=== PATIENT | female | born 1960 | race Caucasian/White ===

== ENCOUNTER 2019-02-16 12:07 | Emergency (ER) | payer OTHER ==
[~2019-02-16] VITALS: Ht 149.9 cm; Wt 72.6 kg
[~2019-02-16 12:07] MED LIST: LISI-420 PO; NITR100C7 PO; TAMS0.4C96 PO
[2019-02-16 12:09] VITALS: BP 155/76
--- NOTE | 2019-02-16 12:19 | NUR ---
PATIENT AMBULATED TO BED 11.
--- NOTE | 2019-02-16 12:20 | NUR ---
Patient being evaluated by DR HERNANDEZ at bedside.
--- NOTE | 2019-02-16 12:20 | NUR ---
59/F BIB GRANDDAUGHTER c/o L sided back pain radiating down L leg & N/V x1 day. Denies TRAUMA OR dysuria.hx: htn, gout. PATIENT STATES PAIN OF 12/23 AT THIS TIME. PATIENT POSITIONED FOR COMFORT; HOB ELEVATED; BEDRAILS UP X1. BED DOWN. ER MADE AWARE OF PT STATUS. Addendum: 02/16/19 at 1252 by [facility] R 5th digit pain. + redness/swelling, denies injury, reports hx of gout
[2019-02-16] MEDS ORDERED: KETOROLAC 60 MG/2 ML VIAL IM ONE (12:30)
--- NOTE | 2019-02-16 13:33 | NUR ---
Patient being reevaluated by DR HERNANDEZ at bedside.
[2019-02-16] MEDS ORDERED: ONDANSETRON 4 MG ODT PO ONE (13:40)
[2019-02-16] MEDS ORDERED: MORPHINE SULFATE 4 MG/ML SYR IM ONE (13:40)
--- NOTE | 2019-02-16 16:53 | NUR ---
Patient being reevaluated by DR HERNANDEZ at bedside.
[2019-02-16 17:17] VITALS: BP 115/63
--- NOTE | 2019-02-16 17:17 | NUR ---
Patient discharged with v/s stable. Written and verbal after care instructions given and explained. Pt encouraged to drink plenty of fluids and eat a diet high in fiber when taking norco. Pt instructed to follow up with PCP in 2-3 days.Patient alert, oriented and verbalized understanding of instructions. Ambulatory with steady gait. All questions addressed prior to discharge. ID band removed. Patient advised to follow up with PMD. Rx of NORCO 5MG AND NAPROSYN 375MG WAS given. Patient educated on indication of medication including possible reaction and side effects. Opportunity to ask questions provided and answered.
== END 2019-02-16 17:17 | disposition home or self-care (01) ==
LOC: MED 12:07
DX: M54.9 Dorsalgia, unspecified (principal); M47.9 Spondylosis, unspecified; I10 Essential (primary) hypertension; Z79.899 Other long term (current) drug therapy; Z87.442 Personal history of urinary calculi; Z87.898 Personal history of other specified conditions
CPT/HCPCS: 72131; 72192; 96372; 99284; J1885; J2270; Q0162

== ENCOUNTER 2019-04-25 16:44 | Emergency (ER) | payer SELFPAY ==
[~2019-04-25] VITALS: Ht 154.9 cm; Wt 73.0 kg
[2019-04-25 17:04] VITALS: BP 157/92
--- NOTE | 2019-04-25 17:15 | NUR ---
PT TO [facility]
--- NOTE | 2019-04-25 17:52 | NUR ---
PT AMBULATED TO ER CHD
[2019-04-25] MEDS: HYDROcodone/APAP 5/325 MG 1 TAB TAB PO ONE (18:20)
--- NOTE | 2019-04-25 18:24 | NUR ---
59 Y/O FEMALE PRESENT WITH THUMB PAIN/SWELLING X1 WEEK, CAUSE IS UNKNOWN. PATIENT DENIES ANY INJURY. SKIN IN TACT. SWELLING/ERYTHEMA NOTED. PAIN 5/10, SHARP. CMS+. NO SOB/CP. LUNG SOUNDS CLEAR IN BILAT LOBES. DENIES ANY RECENT ILLNESS. DENIES N/V/D. RESP EVEN AND UNLABORED. BOWEL SOUNDS NORMO ACTIVE. DAUGHTER AT SIDE. PMH: HTN, CKD NKA
[2019-04-25] MEDS ORDERED: LIDOCAINE MPF 1% 10 MG/ML VIAL INJ ONE (18:45)
[2019-04-25 19:31] VITALS: BP 157/92
--- NOTE | 2019-04-25 19:32 | NUR ---
Patient discharged with v/s stable. Written and verbal after care instructions given and explained. Patient alert, oriented and verbalized understanding of instructions. Ambulatory with steady gait. All questions addressed prior to discharge. ID band removed. Patient advised to follow up with PMD. Rx of IBUPROFEN, KEFLEX given. Patient educated on indication of medication including possible reaction and side effects. Opportunity to ask questions provided and answered.
== END 2019-04-25 19:32 | disposition home or self-care (01) ==
LOC: MED 16:44
DX: L03.011 Cellulitis of right finger (principal); I12.9 Hypertensive chronic kidney disease with stage 1 through stage 4 chronic kidney disease, or unspecified chronic kidney disease; Z79.899 Other long term (current) drug therapy
CPT/HCPCS: 10060; 73140; 90471; 90715; 99284; J2001; Q0092